=== PATIENT | female | born 1995 | race Hispanic/Latino ===

== ENCOUNTER → 2023-04-06 14:03 | Outpatient (REF) | payer OTHER, SELFPAY ==
[2023-04-08 14:25] LABS: H. pylori Breath Test Negative (Negative)
== END ==
LOC: CLINIC 14:03
PROVIDERS: ATTENDING PHYSICIAN Nurse Practitioner Acute Care
DX: K21.00 Gastro-esophageal reflux disease with esophagitis, without bleeding (principal); Z12.4 Encounter for screening for malignant neoplasm of cervix
CPT/HCPCS: 36415; 83013; G0123

== ENCOUNTER 2023-05-07 09:33 | Emergency (ER) | payer OTHER, SELFPAY ==
[2023-05-07 09:37] VITALS: BP 106/63
[2023-05-07 10:06] LABS: Urine Albumin Negative (Neg - Trace); Urine Bilirubin Negative (Negative); Urine Character Clear (Clear); Urine Color Straw; Urine Glucose Negative (Negative); Urine Ketone Negative (Negative); Urine Leukocyte 2+ (Negative); Urine Nitrite Negative (Negative); Urine Occult Blood 1+ (Negative); Urine Specific Gravity 1.005 (<1.030); Urine Urobilinogen Negative (Neg - 1+)
[2023-05-07 10:10] LABS: HCG, Urine Qualitative Screen Negative
--- NOTE | 2023-05-07 10:11 | ED.GENMED ---
History of Present Illness
General
Chief Complaint: Abdominal Symptoms
Source: patient
Exam Limitations: none
Time Seen by Provider: 05/07/23 09:56
Travel History
Have you had any contact with someone who has COVID-19?: No
Do you have any symptoms of coronavirus? Fever > 100 degrees, chills, cough, shortness of breath, sore throat, loss of taste or smell, muscle aches, or headache?: No
History of Present Illness
History of Present Illness:
27-year-old female present complaining of epigastric pain has been ongoing for months. She states is not every day but only most exaggerated when she eats foods that seem to exacerbate symptoms such as acidic foods. Patient also presents with some
discomfort with urinating. She has seen the clinic and was put on Protonix. The patient is supposed to get a GI appointment scheduled but has not had it scheduled yet. No hematemesis, no vomiting, no melena, no hematochezia, no weight loss. She
states that when she eats foods that are 'bad', she feels some abdominal bloating and worse of the burning epigastric region. She also reports that sometimes the pain will go toward her right shoulder. She denies right upper quadrant abdominal
pain. She was seen in December and had an ultrasound. She states the symptoms are no different than they were then. no fevers.
Past History
Past History
ED Past Medical History: GERD
ED Past Surgical History: None
Social History
Tobacco: Non-smoker
Alcohol: None
Personal: Single
Living: with family
Phy Exam
Physical Exam
Physical Exam:
CONSTITUTIONAL Patient alert and oriented to person, place and time. Well-appearing. Vital signs reviewed.
HEAD atraumatic, normocephalic.
EYES eyelids normal to inspection, Extraocular muscles intact, Conjunctiva normal, Sclera normal.
NECK normal range of motion, Trachea midline, no jugular venous distention.
RESPIRATORY CHEST No respiratory distress noted, Chest expansion equal, Bilateral breath sounds clear.
CARDIOVASCULAR regular rate and rhythm, Heart sounds normal.
ABDOMEN mild epigastric tenderness, Bowel sounds normal. No distention. Mild suprapubic tenderness
BACK normal inspection, no obvious deformities, no CVA tenderness
UPPER EXTREMITY range of motion normal, Motor strength normal, no cyanosis, no edema.
LOWER EXTREMITY range of motion normal, Motor strength normal, no cyanosis, no edema.
NEURO Speech normal, No focal motor deficits, [place] coma scale 15, Memory normal, Cranial Nerves intact to screening exam.
SKIN skin warm, dry, and normal in color.
PSYCHIATRIC patient oriented to person place and time, Normal affect.
Course
Orders/Labs/Results
Orders:
Orders
05/07/23 09:56
Test Result ONCE
05/07/23 09:59
HCG, Urine Qualitative Screen Urgent
Date Specimen was Collected: 05/07/23
Time Specimen was Collected: 09:57
Urinalysis Reflex To Culture Stat
Date Specimen was Collected: 05/07/23
Time Specimen was Collected: 09:57
Urine Microscopic Reflex Cult Stat
Urine Culture Stat
NICK Source: U
Specimen Description:
Date Specimen was Collected: 05/07/23
Time Specimen was Collected: 09:57
05/07/23 10:49
Nitrofurantoin Monohydrate [Macrobid] 100 mg PO NOW STA
Abnormal Lab Results
05/07/23
09:59
Ur Occult Blood Reflex 1+ A
(Negative)
Leukocyte Esterase Rfl 2+ A
(Negative)
Urine WBC (Reflex) 21-25 A /HPF
(0-5)
Urine Bacteria (Reflex) Few A
(Negative)
Vital Signs
Initial and Last Documented VS:
Initial Vital Signs
Temp Pulse Resp BP Pulse Ox
98.3 F 75 18 106/63 100
05/07/23 09:37 05/07/23 09:37 05/07/23 09:37 05/07/23 09:37 05/07/23 09:37
Last Documented Vital Signs
Temp Pulse Resp BP Pulse Ox
98.3 F 75 18 106/63 100
05/07/23 09:37 05/07/23 09:37 05/07/23 09:37 05/07/23 09:37 05/07/23 09:37
MDM/Problems Addressed
MDM/Problems Addressed:
Gastroesophageal reflux disease, UTI
*Pulse Oximetry
Patient hypoxic: no
*Critical Care Note
Total Time (30-74mins, 75-104mins- exclusive of procedures): Not Applicable
Data Reviewed
Review of Other/Old Records Reveals: Labs and Radiology Studies (Prior ultrasound report reviewed)
Source: patient
Prescriptions/Medications Considered But Not Given:
Consider labs and D-dimer but patient has had PE rule out in the past for the same symptoms. Has had ultrasound in the past for same symptoms.
Patient Management
Escalation/DeEscalation of care consider admission/obs:
Given her urinary symptoms and findings on urinalysis, treat with antibiotics. Refer to outpatient GI follow-up and add Carafate. Okay for discharge. Recommended bland diet
ED Attending Note
-
Portions of this chart may have been created with voice recognition software.� Occasional wrong word or��sound alike� substitutions may have occurred due to the inherent limitations of voice recognition software.
Discharge Plan
Departure
Patient Disposition: Home (Routine Discharge)
Date of Disposition: 05/07/23
Time of Disposition: 10:50
Patient with high blood pressure during this ER visit?: No
Discharge Problem:
UTI (urinary tract infection), Gastroesophageal reflux disease
Instructions: Acid Reflux and GERD in Adults (DC), Urinary Tract Infection, Adult (DC)
Prescriptions:
New
sucralfate [Carafate] 100 mg/mL suspension
10 ml PO QID Qty: 400 0RF
nitrofurantoin monohyd/m-cryst [Macrobid] 100 mg capsule
100 mg PO BID Qty: 10 0RF
No Action
sucralfate [Carafate] 1 gram tablet
1 g PO QID Qty: 60 0RF
pantoprazole [Protonix] 40 mg tablet,delayed release (DR/EC)
40 mg PO BID Qty: 30 0RF
Referrals:
Kelley Mcgovern CRNP [Family Provider] -
Activity Restrictions/Additional Instructions:
Please drink plenty fluids. Stick to a bland diet and avoid foods that exacerbate your symptoms. Return immediately for intractable vomiting, fevers, worsening abdominal pain or any other concerns. Please be sure to have the clinic plan to
follow-up with gastroenterology as you should have an upper endoscopy. Continue your pantoprazole prior to breakfast every morning.
Por favor kaylyn muchos l�quidos. Siga serene dieta blanda y evite alimentos que exacerben ej s�ntomas. Regrese inmediatamente si tiene v�mitos intratables, fiebre, dolor abdominal que empeora o cualquier otra inquietud. Aseg�rese de tener el plan
cl�nathanael para realizar un seguimiento con gastroenterolog�a, ya que debe realizarse serene endoscopia superior. Contin�e tomando pantoprazol antes del desayuno todas las ma�anas.
Interventions
Interventions:
*Risk Screen - Suicide Last Done: 05/07/23 10:01
*General Assessment Last Done: 05/07/23 10:01
*Neglect/Abuse Screening Last Done: 05/07/23 10:01
*ED COVID-19 Vaccine History Last Done: 05/07/23 09:50
VK-Sitmrb-Nnrsiiwirv Assessment Last Done: 05/07/23 10:01
[2023-05-07 10:20] LABS: Urine Red Blood Cell 0-2 /HPF (0-2); Urine Squamous Cell 0-2 /LPF (Few)
[2023-05-07 10:21] LABS: Urine Bacteria Few (Negative); Urine White Cell 21-25 /HPF (0-5)
[2023-05-07] MEDS: MACROBID 100 MG PO (10:57)
== END 2023-05-07 11:01 | disposition home or self-care (01) ==
LOC: EMR 09:33
PROVIDERS: EMERGENCY PHYSICIAN Emergency Medicine; FAMILY PHYSICIAN Nurse Practitioner Acute Care
DX: N39.0 Urinary tract infection, site not specified (principal); K21.9 Gastro-esophageal reflux disease without esophagitis
CPT/HCPCS: 99283; 81003; 81015; 81025; 87086

== ENCOUNTER → 2023-08-05 15:25 | Outpatient (REF) | payer OTHER, SELFPAY ==
[2023-08-12 21:24] LABS: HPV, High Risk Not Detected; HPV, High Risk Source Cervical
== END ==
LOC: CLINIC 15:25
PROVIDERS: ATTENDING PHYSICIAN Nurse Practitioner Acute Care
DX: Z12.4 Encounter for screening for malignant neoplasm of cervix (principal)
CPT/HCPCS: 87624; G0123

== ENCOUNTER → 2023-08-11 10:35 | Outpatient (REF) | payer OTHER, SELFPAY ==
[2023-08-11 12:05] LABS: ALT (SGPT) 18 U/L (0-35); AST (SGOT) 23 U/L (14-36); Albumin 4.5 g/dl (3.5-5.0); Alkaline Phosphatase 44 U/L (38-126); Direct Bilirubin 0.2 mg/dl (0.0-0.4); Total Bilirubin 0.8 mg/dl (0.2-1.3); Total Protein 7.2 g/dl (6.3-8.2)
== END ==
LOC: CLINIC 10:35
PROVIDERS: ATTENDING PHYSICIAN Physician Assistant; FAMILY PHYSICIAN Nurse Practitioner Adult Health
DX: R74.8 Abnormal levels of other serum enzymes (principal)
CPT/HCPCS: 36415; 80076